=== PATIENT | male | born 1935 | race Caucasian/White ===

== ENCOUNTER 2018-02-10 10:19 | Emergency (ER) | payer OTHER ==
[~2018-02-10] VITALS: Ht 170.2 cm; Wt 72.6 kg
[~2018-02-10 10:19] MED LIST: ATIVAN1 MG PO; CAPOTEN12.5 MG PO; COREG CR10 MG PO; LIPITOR40 MG PO; METFORMIN HCL500 MG PO; PROZAC20 MG PO; SYNTHROID50 MCG PO
[2018-02-10] MEDS ORDERED: MONTELUKAST SOD10 MG PO (11:13)
== END 2018-02-10 17:21 | disposition home or self-care (01) ==
LOC: ER 10:19
DX: R07.89 Other chest pain (principal)